=== PATIENT | female | born 1985 | race Caucasian/White ===

== ENCOUNTER 2018-02-21 06:40 | Inpatient (IN) | payer OTHER ==
[~2018-02-21] VITALS: Ht 160 cm; Wt 85.7 kg
[2018-02-21] MEDS ORDERED: OXYTOCIN 10 UNITS/ML VIAL ONE (07:03)
[2018-02-21] MEDS ORDERED: IBUPROFEN 800 MG TAB PO PRN (07:40)
[2018-02-21] MEDS ORDERED: oxyCODONE/APAP 5/325 MG 1 TAB TAB PO PRN (07:40)
[2018-02-21] MEDS ORDERED: BENZOCAINE/MENTHOL 20%-0.5% 60 GM CAN TP PRN (07:40)
[2018-02-21] MEDS ORDERED: METHYLERGONOVINE 0.2 MG/ML AMP IM PRN (07:40)
[2018-02-21] MEDS ORDERED: MEASLES, MUMPS, AND RUBELLA 1 VIAL SQVAC PRN (07:40)
[2018-02-21] MEDS ORDERED: SODIUM PHOSPHATE 118 ML ENEM RC PRN (07:40)
[2018-02-21] MEDS ORDERED: TEMAZEPAM 15 MG CAP PO PRN (07:40)
[2018-02-21] MEDS ORDERED: HYDROcodone/APAP 5/325 MG 1 TAB TAB PO PRN (07:40)
[2018-02-21] MEDS ORDERED: OXYTOCIN 10 UNITS/ML VIAL IM PRN (07:40)
[2018-02-21] MEDS ORDERED: IBUPROFEN 800 MG TAB ONE (07:53)
--- NOTE | 2018-02-21 09:06 | NUR ---
PATIENT HAS BEEN SCREENED AND CATEGORIZED LOW NUTRITION RISK. PATIENT WILL BE SEEN WITHIN 7 DAYS OF ADMISSION. 02/27/[address]
[2018-02-21] MEDS ORDERED: DOCUSATE SOD/SENNA 50/8.6 MG 1 TAB PO SCH (21:00)
[2018-02-22 06:07] LABS: HEMATOCRIT 39.6 % (36-48); HEMOGLOBIN 12.9 g/dL (12.0-16.0)
== END 2018-02-23 15:05 | disposition home or self-care (01) | DRG 560 ==
LOC: MFCC 06:40
PROVIDERS: ADMIT Obstetrics & Gynecology; ATTEND Obstetrics & Gynecology
PROC: 10E0XZZ Delivery of Products of Conception, External Approach (ICD-10-PCS; principal; 2018-02-21)
PROC: 0HQ9XZZ Repair Perineum Skin, External Approach (ICD-10-PCS; 2018-02-21)
PROC: 3E0234Z Introduction of Serum, Toxoid and Vaccine into Muscle, Percutaneous Approach (ICD-10-PCS; 2018-02-21)
DX: O69.81X0 Labor and delivery complicated by cord around neck, without compression, not applicable or unspecified (principal); O70.0 First degree perineal laceration during delivery; Z23 Encounter for immunization; Z37.0 Single live birth; Z3A.39 39 weeks gestation of pregnancy; Z83.3 Family history of diabetes mellitus; Z80.6 Family history of leukemia; Z90.49 Acquired absence of other specified parts of digestive tract
CPT/HCPCS: 36415; 59409; 85018; 86592; 90715; J2590